=== PATIENT | female | born 1995 | race Caucasian/White ===

== ENCOUNTER 2019-05-26 12:24 | Emergency (ER) | payer BC ==
[2019-05-26] MEDS ORDERED: Sodium Chloride 0.9% 10 ML Syringe FLUSH PRN (12:53)
[2019-05-26] MEDS ORDERED: Ondansetron 4 MG/2 ML SDV IVPUSH ONE (12:54)
[2019-05-26] MEDS ORDERED: fentaNYL 100 MCG/2 ML SDV IVPUSH ONE (12:54)
--- NOTE | 2019-05-26 12:58 | EDM.PDOC ---
ED HPI GENERAL MEDICAL PROBLEM - General Chief Complaint: Abdominal Pain Stated Complaint: RT SIDE ABD PAIN Time Seen by Provider: 05/26/19 12:48 Source of Information: Reports: Patient, RN Notes Reviewed History Limitations: Reports: No Limitations - History of Present Illness INITIAL COMMENTS - FREE TEXT/NARRATIVE: 23-year-old female presents emergency department a complaint of abdominal pain, she states the pain started last night was very intense resolved a little but then came back early this afternoon. 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: Neurological History: Reports: Migraines Psychiatric History: Reports: Anxiety, Depression, Panic Attack - Past Surgical History Head Surgeries/Procedures: Reports: None HEENT Surgical History: Reports: Tonsillectomy GI Surgical History: Reports: None Neurological Surgical History: Reports: None Dermatological Surgical History: Reports: None Social & Family History - Tobacco Use Smoking Status *Q: Former Smoker Used Tobacco, but Quit: Yes Month/Year Tobacco Last Used: 2016 Second Hand Smoke Exposure: No - Caffeine Use Caffeine Use: Reports: Coffee, Energy Drinks, Soda - Alcohol Use Days Per Week of Alcohol Use: 2 Number of Drinks Per Day: 1 Total Drinks Per Week: 2 - Recreational Drug Use Recreational Drug Use: No ED ROS GENERAL - Review of Systems Review Of Systems: See Below Constitutional: Denies: Fever, Chills HEENT: Reports: No Symptoms Respiratory: Reports: No Symptoms Cardiovascular: Reports: No Symptoms GI/Abdominal: Reports: Abdominal Pain, Flatus, Nausea. Denies: Vomiting : Reports: No Symptoms ED EXAM, GI/ABD - Physical Exam Exam: See Below Text/Narrative:: Sits with her knees bent for comfort Exam Limited By: No Limitations General Appearance: Alert, WD/WN, No Apparent Distress Neck: Normal Inspection, Supple, Non-Tender, Full Range of Motion Respiratory/Chest: No Respiratory Distress, Lungs Clear, Normal Breath Sounds, No Accessory Muscle Use, Chest Non-Tender Cardiovascular: Regular Rate, Rhythm, No Murmur GI/Abdominal Exam: Soft, No Distention, No Abnormal Bruit (Psoas sign positive obturator sign negative heeltap positive), Tender (Tender right lower quadrant) Back Exam: Normal Inspection, Full Range of Motion. No: CVA Tenderness (R), CVA Tenderness (L) Course - Vital Signs Last Recorded V/S: Last Vital Signs Temp 97.5 F 05/26/19 12:42 Pulse 73 05/26/19 12:42 Resp 18 05/26/19 12:42 BP 140/79 05/26/19 12:42 Pulse Ox 97 05/26/19 12:42 - Orders/Labs/Meds Orders: Active Orders 24 hr Category Date Time Status Peripheral IV Care [RC] . DIRECTED Care 05/26/19 12:53 Active Lactated Ringers [Ringers, Lactated] 1,000 ml Med 05/26/19 13:00 Active IV ASDIRECTED Sodium Chloride 0.9% [Saline Flush] Med 05/26/19 12:53 Active 10 ml FLUSH ASDIRECTED PRN Peripheral IV Insertion Adult [OM.PC] Urgent Oth 05/26/19 12:53 Ordered Medication Orders Lactated Ringer's (Ringers, Lactated) 1,000 mls @ 999 mls/hr IV ASDIRECTED CINDY Last Admin: 05/26/19 13:12 Dose: 999 mls/hr Sodium Chloride (Saline Flush) 10 ml FLUSH ASDIRECTED PRN PRN Reason: Keep Vein Open Last Admin: 05/26/19 13:08 Dose: 10 ml Labs: Laboratory Tests 05/26/19 05/26/19 05/26/19 Range/Units 13:02 13:02 13:02 WBC 6.7 (4.5-11.0) K/uL RBC 4.84 (3.30-5.50) M/uL Hgb 14.0 (12.0-15.0) g/dL Hct 42.1 (36.0-48.0) % MCV 87 (80-98) fL MCH 29 (27-31) pg MCHC 33 (32-36) % Plt Count 242 (150-400) K/uL Neut % (Auto) 62 (36-66) % Lymph % (Auto) 25 (24-44) % [place] % (Auto) 10 H (2-6) % Eos % (Auto) 2 (2-4) % Baso % (Auto) 1 (0-1) % Sodium 140 (140-148) mmol/L Potassium 3.7 (3.6-5.2) mmol/L Chloride 104 (100-108) mmol/L Carbon Dioxide 25 (21-32) mmol/L Anion Gap 10.7 (5.0-14.0) mmol/L BUN 9 (7-18) mg/dL Creatinine 0.9 (0.6-1.0) mg/dL Est Cr Clr Drug Dosing 87.48 mL/min Estimated GFR (MDRD) > 60 (>60) Glucose 84 (74-106) mg/dL Lactic Acid 1.1 (0.4-2.0) mmol/L Calcium 8.7 (8.5-10.1) mg/dL Total Bilirubin 0.5 (0.2-1.0) mg/dL AST 18 (15-37) U/L ALT 25 (12-78) U/L Alkaline Phosphatase 61 (46-116) U/L Total Protein 7.1 (6.4-8.2) g/dL Albumin 3.8 (3.4-5.0) g/dL Globulin 3.3 (2.3-3.5) g/dL Albumin/Globulin Ratio 1.2 (1.2-2.2) Lipase 154 (73-393) U/L Urine Color (YELLOW) Urine Appearance (CLEAR) Urine pH (5.0-8.0) Ur Specific [place] (1.008-1.030) Urine Protein (NEGATIVE) mg/dL Urine Glucose (UA) (NEGATIVE) mg/dL Urine Ketones (NEGATIVE) mg/dL Urine Occult Blood (NEGATIVE) Urine Nitrite (NEGATIVE) Urine Bilirubin (NEGATIVE) Urine Urobilinogen (0.2-1.0) EU/dL Ur Leukocyte Esterase (NEGATIVE) Urine RBC (0-5) Urine WBC (0-5) Ur Epithelial Cells Amorphous Sediment Urine Bacteria Urine Mucus Urine HCG, Qual 05/26/19 05/26/19 Range/Units 13:07 13:46 WBC (4.5-11.0) K/uL RBC (3.30-5.50) M/uL Hgb (12.0-15.0) g/dL Hct (36.0-48.0) % MCV (80-98) fL MCH (27-31) pg MCHC (32-36) % Plt Count (150-400) K/uL Neut % (Auto) (36-66) % Lymph % (Auto) (24-44) % [place] % (Auto) (2-6) % Eos % (Auto) (2-4) % Baso % (Auto) (0-1) % Sodium (140-148) mmol/L Potassium (3.6-5.2) mmol/L Chloride (100-108) mmol/L Carbon Dioxide (21-32) mmol/L Anion Gap (5.0-14.0) mmol/L BUN (7-18) mg/dL Creatinine (0.6-1.0) mg/dL Est Cr Clr Drug Dosing mL/min Estimated GFR (MDRD) (>60) Glucose (74-106) mg/dL Lactic Acid (0.4-2.0) mmol/L Calcium (8.5-10.1) mg/dL Total Bilirubin (0.2-1.0) mg/dL AST (15-37) U/L ALT (12-78) U/L Alkaline Phosphatase (46-116) U/L Total Protein (6.4-8.2) g/dL Albumin (3.4-5.0) g/dL Globulin (2.3-3.5) g/dL Albumin/Globulin Ratio (1.2-2.2) Lipase (73-393) U/L Urine Color Yellow (YELLOW) Urine Appearance Clear (CLEAR) Urine pH 6.5 (5.0-8.0) Ur Specific [place] 1.020 (1.008-1.030) Urine Protein Negative (NEGATIVE) mg/dL Urine Glucose (UA) Negative (NEGATIVE) mg/dL Urine Ketones Negative (NEGATIVE) mg/dL Urine Occult Blood Negative (NEGATIVE) Urine Nitrite Negative (NEGATIVE) Urine Bilirubin Negative (NEGATIVE) Urine Urobilinogen 0.2 (0.2-1.0) EU/dL Ur Leukocyte Esterase Negative (NEGATIVE) Urine RBC Not seen (0-5) Urine WBC Not seen (0-5) Ur Epithelial Cells Few Amorphous Sediment Not seen Urine Bacteria Not seen Urine Mucus Not seen Urine HCG, Qual Negative Meds: Medications Generic Name Dose Route Start Last Admin Trade Name Freq PRN Reason Stop Dose Admin Lactated Ringer's 1,000 mls @ 999 mls/hr 05/26/19 13:00 05/26/19 13:12 Ringers, Lactated IV 999 mls/hr ASDIRECTED CINDY Administration Sodium Chloride 10 ml 05/26/19 12:53 05/26/19 13:08 Saline Flush FLUSH 10 ml ASDIRECTED PRN Administration Keep Vein Open Discontinued Medications Generic Name Dose Route Start Last Admin Trade Name Freq PRN Reason Stop Dose Admin Fentanyl 25 mcg 05/26/19 12:54 05/26/19 13:09 Sublimaze IVPUSH 05/26/19 12:55 25 mcg ONETIME ONE Administration Sodium Chloride 75 mls @ 3.5 mls/sec 05/26/19 13:52 05/26/19 14:03 Normal Saline IV 05/26/19 13:53 3.5 mls/sec ASDIRECTED STA Administration Iopamidol 100 ml 05/26/19 13:51 05/26/19 14:03 Isovue-300 (61%) IV 05/26/19 13:52 100 ml . DIRECTED STA Administration Ondansetron HCl 4 mg 05/26/19 12:54 05/26/19 13:08 Zofran IVPUSH 05/26/19 12:55 4 mg ONETIME ONE Administration Departure - Departure Time of Disposition: 14:58 Disposition: Home, Self-Care 01 Condition: Fair Clinical Impression: Functional constipation - Discharge Information Instructions: Constipation, Adult Referrals: PCP,None [Primary Care Provider] - Forms: ED Department Discharge Additional Instructions: Try the colonoscopy prep with MiraLAX and Gatorade, please followup with your primary care provider in 3-5 days if not better, please call return to the emergency department with worsening of symptoms. Sepsis Event Note - Evaluation Sepsis Screening Result: No Definite Risk - Focused Exam Vital Signs: Vital Signs Temp Pulse Resp BP Pulse Ox 05/26/19 12:42 97.5 F 73 18 140/79 97 05/26/19 12:36 97.5 F 73 18 140/79 97 Date Exam was Performed: 05/26/19 Time Exam was Performed: 14:57 - My Orders Last 24 Hours: My Active Orders 05/26/19 12:53 Peripheral IV Care [RC] . DIRECTED Sodium Chloride 0.9% [Saline Flush] 10 ml FLUSH ASDIRECTED PRN Peripheral IV Insertion Adult [OM.PC] Urgent 05/26/19 13:00 Lactated Ringers [Ringers, Lactated] 1,000 ml IV ASDIRECTED - Assessment/Plan Last 24 Hours: My Active Orders 05/26/19 12:53 Peripheral IV Care [RC] . DIRECTED Sodium Chloride 0.9% [Saline Flush] 10 ml FLUSH ASDIRECTED PRN Peripheral IV Insertion Adult [OM.PC] Urgent 05/26/19 13:00 Lactated Ringers [Ringers, Lactated] 1,000 ml IV ASDIRECTED Plan: Assessment Acuity = acute Site and laterality = functional constipation Etiology = slow transit time Manifestations = abdominal pain Location of injury = Home Lab values = CBC, CMP, urinalysis, CT scan all unremarkable Plan I did review blood work and image results with her handout on colonoscopy prep was provided follow-up primary care 3 to 5 days if not better This note was dictated using [employer] voice recognition software please call with any questions on syntax or grammar.
[2019-05-26] MEDS ORDERED: Lactated Ringers 1,000 ML IV SCH (13:00)
[2019-05-26] MEDS ORDERED: Iopamidol 612 MG/ML 100 ML Bottle IV STA (13:51)
[2019-05-26] MEDS ORDERED: Sodium Chloride 0.9% 75 ML IV STA (13:52)
--- NOTE | 2019-05-26 14:49 | CRLCT ---
INDICATION: Right lower quadrant abdominal pain. TECHNIQUE: CT scan of the abdomen and pelvis with 100 cc of Isovue-300 given intravenously. FINDINGS: The lung bases are unremarkable. No focal abnormalities identified in the visualized portions of the liver, spleen, pancreas, adrenal glands, and kidneys. No hydronephrosis. No obstructing uroliths. IUD in the uterus. The GI tract is incompletely distended but shows no gross abnormalities. The stomach and GE junction are not well assessed. Normal appendix. No retroperitoneal, pelvic sidewall, or mesenteric adenopathy. IMPRESSION: 1. No acute abnormalities of the abdomen or pelvis identified. Dictated by Martin Gautam MD @ 05/26/2019 2:48:14 PM Please note that all CT scans at this facility use dose modulation, iterative reconstruction, and/or weight-based dosing when appropriate to reduce radiation dose to as low as reasonably achievable. Dictated by: Martin Gautam MD @ 05/26/2019 14:48:22 (Electronically Signed)
== END 2019-05-26 15:05 | disposition home or self-care (01) ==
LOC: JP.ED 12:24
DX: K59.04 Chronic idiopathic constipation (principal); Z87.891 Personal history of nicotine dependence
CPT/HCPCS: 36415; 74177; 80053; 81001; 81025; 83605; 83690; 85025; 96361; 96374; 96375; 99284; J2405; J3010; J7050; J7120; Q9967